=== PATIENT | female | born 1985 | race Caucasian/White ===

== ENCOUNTER 2016-12-27 01:59 | Emergency (ER) | payer SELFPAY ==
[2016-12-27] MEDS ORDERED: SODIUM CHLORIDE 0.9% 1000 ML SOL IV SCH (02:15)
[2016-12-27] MEDS ORDERED: SODIUM CHLORIDE 0.9% FLUSH 10 ML SOL IV PRN (03:03)
[2016-12-27 03:24] VITALS: TEMP 97.9
[2016-12-27 03:47] VITALS: BP 97/55; PULSE 90; RESP 14; O2SAT 99
== END 2016-12-27 03:32 | disposition home or self-care (01) | DRG 897 ==
LOC: SUPCPDRO 01:59 → ED 01:59
DX: F10.129 Alcohol abuse with intoxication, unspecified (principal)
CPT/HCPCS: 96365; 99282; 99284